=== PATIENT | female | born 1955 | race Caucasian/White ===

== ENCOUNTER → 2024-02-20 10:01 | Outpatient (REF) | payer MEDICARE, SELFPAY | LOC: RCS 10:01 | PROVIDERS: ATTENDING PHYSICIAN Nurse Practitioner; FAMILY PHYSICIAN Family Medicine | DX: R00.2 Palpitations (principal); I49.3 Ventricular premature depolarization; R03.0 Elevated blood-pressure reading, without diagnosis of hypertension | CPT/HCPCS: 93306 ==

== ENCOUNTER 2024-11-10 23:37 | Emergency (ER) | payer MEDICARE, SELFPAY ==
--- NOTE | 2024-11-11 00:26 | EDRN ---
Pt woke 'in a panic' has been very depressed, says she is doing what she is supposed to do but she is struggling. Pt said side of her face felt funny, numb, when she woke, went to find her but was unable to locate him 'which made it worse'
so pt drove herself to ED. 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 Pt was seeing a therapist but 'it got very expensive' so she stopped. 'Since Iván I've
thought of going with him. I think if I could go to sleep and not wake up it would be nice.' Pt gave her pills to family member that she had left over from knee surgery couple years ago. Pt is thirsty. Face feels better now. Pt has anxiety and
depression, says she does not take any medications. 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 Pt does not want any medicine now for anxiety 'the pills make me more
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
--- NOTE | 2024-11-11 00:34 | EDRN ---
Pt asked if she can get dressed, does not like being in gown. Pt getting dressed. Dr Chen convinced pt to stay and speak with crisis to possible get outpatient resources that can help her and not be cost prohibitive. Pt agreeable to consult.
--- NOTE | 2024-11-11 00:37 | EDRN ---
Called crisis and asked to come over to speak with pt
--- NOTE | 2024-11-11 00:47 | ED.GENMED ---
History of Present Illness
General
Chief Complaint: Anxiety
Time Seen by Provider: 11/10/24 23:57
History of Present Illness
History of Present Illness:
69-year-old female with history of depression presenting to the emergency department for increased anxiety. Patient reports that she woke up feeling very anxious and felt some tingling to the left side of her face. Does note history of MS so was
not sure if it was her MS flaring from her underlying anxiety. Notes a lot of stress, financial and marital. 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 She also lost her son in April. She had been
following with a therapist, however stopped due to cost and insurance. She is not on any medications for anxiety or depression. She does note that she has had thoughts about wanting to , however denies any active suicidal thoughts or plan. She
denies chest pain or difficulty breathing. She denies any focal weakness to her extremities or numbness. She denies additional acute medical complaints
Past History
Past History
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
ED Past Surgical History: Cholecystectomy, , Gynecological (Total Hysterectomy), Orthopedic (Lumbar laminectomy) and Other
Patient has exhibited threatening behavior?: No
PSI?: No
Social History
Tobacco: Non-smoker
Alcohol: None
Drug: None
Personal:
Living: with family
Employment: Employed
Family History
Family History: Hypertension
Phy Exam
Physical Exam
Physical Exam:
General: Well-appearing, no clinical signs of dehydration, nontoxic and in no acute distress
HEENT: protecting airway
Neck: appears supple
CV: Normal heart rate, regular rhythm
Resp: No accessory muscle use, no increased work of breathing, lungs clear to auscultation bilaterally
Abd: Soft and non-distended, no tenderness to palpation, normal bowel sounds
Extremities: No deformities, no swelling
Neuro: alert, no focal neurologic deficit
: deferred
Rectal: deferred
Psych: Tearful
Skin: Intact
Course
Orders/Labs/Results
Orders:
Orders
11/10/24 23:53
Crisis Consult Urgent
Reason for Consult: SI
Vital Signs
Initial and Last Documented VS:
Initial Vital Signs
Temp Pulse Resp Pulse Ox
98.0 F 92 18 99
11/10/24 23:48 11/10/24 23:48 11/10/24 23:48 11/10/24 23:48
Last Documented Vital Signs
Temp Pulse Resp Pulse Ox
98.0 F 92 18 99
11/10/24 23:48 11/10/24 23:48 11/10/24 23:48 11/10/24 23:48
MDM/Problems Addressed
MDM/Problems Addressed:
69-year-old female with history of depression presenting to the emergency department for suspected panic attack. Vital signs on arrival are normal.
On exam, patient is in no acute distress, however is crying, tearful, anxious. Suspect anxiety attack/panic attack. Patient denies any active suicidal thoughts or plan. Does not appear to be a present threat to herself or others. Will consult
crisis. Patient declining any medications or anxiety at this time. Regarding tingling to her face, no focal neurologic deficits or stroke like symptoms. Without concern for acute CVA. Suspected related to panic and hyperventilation.
00:50 - Patient eloped prior to crisis assessment.
*Pulse Oximetry
SaO2: 99
Oxygen Mode of Delivery: Room air
Patient hypoxic: no
*Critical Care Note
Total Time (30-74mins, 75-104mins- exclusive of procedures): Not Applicable
ED Attending Note
-
Portions of this chart may have been created with voice recognition software.� Occasional wrong word or��sound alike� substitutions may have occurred due to the inherent limitations of voice recognition software.
Discharge Plan
Departure
Patient Disposition: Elopement
Date of Disposition: 11/11/24
Time of Disposition: 00:50
Patient with high blood pressure during this ER visit?: No
Condition: Fair
Discharge Problem:
Anxiety, Depression
Instructions: Depression, Adult (DC), Anxiety, Adult (DC)
Prescriptions:
No Action
No Current Medications
0
Referrals:
UNKNOWN - PT DOES,NOT KNOW [Family Provider]
Interventions
Interventions:
*Risk Screen - Suicide Last Done: 11/10/24 23:48
*General Assessment Last Done: 11/10/24 23:48
*Neglect/Abuse Screening Last Done: 11/10/24 23:48
*ED- Fall Risk Assessment Last Done: 11/10/24 23:48
*ED COVID-19 Vaccine History Last Done: 11/10/24 23:48
ED-Psychological Assessment Last Done: 11/11/24 00:38
Discharge Date and Time
Print Language: OCCITAN
== END 2024-11-11 00:50 | disposition left against medical advice (07) ==
LOC: EMR 23:37
PROVIDERS: EMERGENCY PHYSICIAN Student in an Organized Health Care Education/Training Program
DX: F41.9 Anxiety disorder, unspecified (principal); F32.A Depression, unspecified; R20.2 Paresthesia of skin; I10 Essential (primary) hypertension; G89.29 Other chronic pain; J45.909 Unspecified asthma, uncomplicated; Z85.42 Personal history of malignant neoplasm of other parts of uterus; Z90.710 Acquired absence of both cervix and uterus; Z53.29 Procedure and treatment not carried out because of patient's decision for other reasons
CPT/HCPCS: 99282

== ENCOUNTER → 2024-12-03 17:39 | Outpatient (REF) | payer MEDICARE, SELFPAY | LOC: RAD 17:39 | PROVIDERS: ATTENDING PHYSICIAN Family Medicine | DX: R60.0 Localized edema (principal); M79.605 Pain in left leg | CPT/HCPCS: 93971 ==